=== PATIENT | male | born 1980 | race Caucasian/White ===

== ENCOUNTER 2016-10-26 16:45 | Emergency (ER) | payer BC, MEDICAID ==
[~2016-10-26] VITALS: Ht 167.6 cm; Wt 68.0 kg
[2016-10-26 16:48] VITALS: Ht 167.6 cm; Wt 68.0 kg
--- NOTE | 2016-10-26 19:03 | ERD ---
ER Documentation Chief Complaint Date/Time DATE: 10/26/16 TIME: 19:02 Chief Complaint LT KNEE PAIN S/P FALL ON MONDAY HPI Patient is a 36-year-old male who presents with medial left knee pain for 3 days after he fell on his knee. He denies numbness or difficulty walking. He states that he has pain when he bends his knee. He denies other injury or prior injury to the knee. ROS All systems reviewed and are negative except as per history of present illness. Medications Home Meds Active Scripts Ibuprofen* (Motrin*) 600 Mg Tab, 600 MG PO Q8, #21 TAB Prov:YAW LEON MD 10/26/16 Allergies Allergies: Coded Allergies: No Known Allergy (Unverified , 02/04/13) PMhx/Soc Past medical history: None Past surgical history: None Social history: Occasional tobacco use, no alcohol History of Surgery: No Anesthesia Reaction: No Hx Neurological Disorder: No Hx Respiratory Disorders: No Hx Cardiac Disorders: No Hx Psychiatric Problems: No Hx Miscellaneous Medical Probl: Yes (RATTLESNAKE BITE 12/20 ANTIVENOM,carrillo) Hx Alcohol Use: No Hx Substance Use: No Hx Tobacco Use: No FmHx Family History: No coronary disease, No diabetes Physical Exam Vitals Vital Signs Date Time Temp Pulse Resp B/P Pulse Ox O2 Delivery O2 Flow Rate FiO2 10/26/16 16:48 98.0 71 18 112/58 98 Physical Exam Const: Alert, no acute distress Head: Atraumatic Eyes: Normal Conjunctiva, no pallor ENT: Normal External Ears, Nose and Mouth. Skin: No petechiae or rashes Ext: No cyanosis, or edema, no tenderness over the patella, no joint effusion. Point tenderness to the medial joint line. No ligamentous laxity. Extensor mechanism intact. Neur: Awake and alert, cranial nerves II through XII intact bilaterally, strength and sensation full in 4 extremities. Psych: Normal Mood and Affect Procedures/MDM MDM: Patient is a 36-year-old male who presents with 5 days of knee pain after a ground-level fall. X-rays negative for fracture, exam is negative for effusion or ligamentous injury. There is no evidence of infection. He is neurovascularly intact. He is provided an Rudy bandage and prescription for Motrin. Advised him to apply ice, and follow-up with PMD if his symptoms do not improve. Departure Diagnosis: Primary Impression: Knee contusion Condition: YAW Kay MD Oct 26, 2016 19:03
--- NOTE | 2016-10-26 19:31 | RADRPT ---
PROCEDURE: Left knee x-ray CLINICAL INDICATION: Pain, trauma TECHNIQUE: AP, lateral and oblique views of the left knee were obtained. COMPARISON: None FINDINGS: Soft tissue swelling anterior to patella. No fracture dislocation seen. IMPRESSION: Soft tissue swelling anterior to patella. No fracture seen. RPTAT: HJES .Santhosh Robertson MD, MD Date Time Electronically viewed and signed by .Santhosh Robertson MD, MD on 10/26/2016 19:31 .S/
[2016-10-26] MEDS ORDERED: IBUP-1542 PO (19:39)
== END 2016-10-26 19:46 | disposition home or self-care (01) ==
LOC: FTE 16:45
DX: S80.02XA Contusion of left knee, initial encounter (principal); W18.39XA Other fall on same level, initial encounter; Y92.9 Unspecified place or not applicable
CPT/HCPCS: 73562